=== PATIENT | female | born 1955 ===

== ENCOUNTER 2023-12-07 13:26 | Emergency (ER) | payer SELFPAY ==
[~2023-12-07] VITALS: Ht 162.6 cm; Wt 75.9 kg
[2023-12-07 13:37] VITALS: TEMP 98.3
[2023-12-07] MEDS ORDERED: PERCOCET 325 MG1 TA2 PO (15:44)
[2023-12-07 16:02] VITALS: BP 136/82; PULSE 72
== END 2023-12-07 16:02 | disposition home or self-care (01) ==
LOC: COL.ER 13:26
DX: S52.611A Displaced fracture of right ulna styloid process, initial encounter for closed fracture (principal); S52.501A Unspecified fracture of the lower end of right radius, initial encounter for closed fracture; W00.0XXA Fall on same level due to ice and snow, initial encounter; Y92.59 Other trade areas as the place of occurrence of the external cause; Y99.0 Civilian activity done for income or pay